=== PATIENT | female | born 1930 | race Caucasian/White ===

== ENCOUNTER 2018-07-09 20:43 | Emergency (ER) | payer MEDICARE, OTHER ==
[~2018-07-09] VITALS: Ht 157.5 cm; Wt 68.9 kg
[~2018-07-09 20:43] MED LIST: ARICEPT5 MG PO; ASPIRIN LOW DOS81 MG PO; FERROUS SULFAT325 MG PO; FLAGYL500 MG PO; FUROSEMIDE40 MG PO; LEVAQUIN500 MG PO; LOSARTAN POTASS25 MG PO; LOVENOX40 MG/0.4 SC; MACROBID 100 M100 MG PO; METOPROLOL SUCC25 MG PO; MULTI-VITAMIN1 EACH PO; ONDANSETRO4 MG/UDTAB PO; PANTOPRAZOLE SO40 MG PO; POTASSIUM CHLO10 ME1 PO; QUESTRAN PACKET4 GM PO; ULTIMATE FLORA PO; VANCOMYCIN PO; WARFARIN SODIU2.5 MG PO; WARFARIN SODIUM2 MG PO; Z.0.CALTRATE 600 W1 PO; Z.0.DIOVAN80 MG PO; Z.0.WARFARIN SODIUM2 PO; ZOLOFT50 MG PO; [UNRECOGNIZED DRUG - OTHER]; [UNRECOGNIZED DRUG - OTHER] PO
[2018-07-09 22:20] LABS: BASOPHILS # (AUTO) 0.1 (0.0-0.1); BASOPHILS % 0.5 % (0.0-1.0); EOSINOPHILS # (AUTO) 0.1 (0.0-0.4); EOSINOPHILS % 1.4 % (0.0-6.0); HEMATOCRIT 38.3 % (34.2-44.1); HEMOGLOBIN 12.9 g/dL (12.0-16.0); LYMPHOCYTES # (AUTO) 1.4 (1.0-3.2); MEAN CORPUSCULAR HEMOGLOBIN 32.1 pg (28-32); MEAN CORPUSCULAR HGB CONC 33.7 g/dL (31-35); MEAN CORPUSCULAR VOLUME 95.3 fL (81-99); MONOCYTES # (AUTO) 0.7 (0.2-0.8); MONOCYTES % 7.1 % (4.4-11.3); NEUTROPHILS # (AUTO) 7.2 (2.1-6.9); NEUTROPHILS % 75.7 % (38.7-80.0); PLATELET COUNT 279 x10e3/uL (140-360); RED BLOOD COUNT 4.02 x10e6/uL (3.6-5.1); RED CELL DISTRIBUTION WIDTH 13.1 % (11.7-14.4)
[2018-07-09 22:36] LABS: ALBUMIN/GLOBULIN RATIO 1.1 (0.8-2.0); ANION GAP 14.2 mmol/L (8-16); CREATININE, SERUM 1.05 mg/dL (0.57-1.11); POTASSIUM 4.2 mmol/L (3.5-5.1)
--- NOTE | 2018-07-09 22:40 | Diagnostic Imaging Report ---
KNEE LEFT THREE VIEWS HISTORY: Fall. COMPARISON: None available. FINDINGS: Bones: No acute displaced fracture. Osseous alignment is within normal limits. Joints: The joint spaces are well-maintained. Soft tissues: Vascular calcifications. No joint effusion. IMPRESSION: No acute radiographic abnormality. Signed by: DR. Silvestre Loja MD on 07/09/2018 10:37 PM
[2018-07-09 22:43] LABS: CREATINE KINASE MB 0.7 ng/mL (0-5.0)
--- NOTE | 2018-07-09 22:45 | Diagnostic Imaging Report ---
EXAMINATION: CHEST SINGLE (PORTABLE) INDICATION: NEAR SYNCOPE COMPARISON: Chest x-ray 11/06/2016 FINDINGS: AP view TUBES and LINES: Left chest wall single lead cardiac pacer with lead tip overlying the right ventricle. LUNGS: Lungs are well inflated. Stable scarring or atelectasis in the right mid and left lower lungs. There is no evidence of pneumonia or pulmonary edema. PLEURA: No pleural effusion or pneumothorax. HEART AND MEDIASTINUM: Mild enlargement of the cardiac silhouette. BONES AND SOFT TISSUES: Expanded appearance of the proximal right humerus appears new from 11/06/2016. Soft tissues are unremarkable. UPPER ABDOMEN: No free air under the diaphragm. IMPRESSION: Stable mild enlargement of the cardiac silhouette. No acute thoracic abnormality. Expanded appearance of the partially visualized proximal right humerus, new from 11/06/2016. Recommend dedicated right humerus radiographs for further evaluation. Signed by: DR. Silvestre Loja MD on 07/09/2018 10:42 PM
[2018-07-09 22:54] LABS: CALCIUM 10.1 mg/dL (8.4-10.2)
--- NOTE | 2018-07-09 23:29 | Diagnostic Imaging Report ---
EXAMINATION: Head CT without contrast. HISTORY:Near syncope, vomiting and fall. COMPARISON:CT brain from 10/13/2016. TECHNIQUE: Multidetector axial images were obtained from the foramen magnum to the vertex without contrast. The images were reconstructed using brain and bone algorithms. Thin section brain images were reformatted into coronal and sagittal planes. Dose modulation, iterative reconstruction, and/or weight based adjustment of the mA/kV was utilized to reduce the radiation dose to as low as reasonably achievable. Intravenous contrast: None IMAGE QUALITY: Acceptable. FINDINGS: Skull/scalp: No lytic or blastic. lesions. No surgical changes. Parenchyma: Nonspecific bilateral frontoparietal patchy white matter hypodensity are likely related to small vessel ischemic changes. Unchanged cortical-based hypodensity in right occipital lobe represents chronic encephalomalacia from prior vascular insult. No acute hemorrhage, mass or acute major vascular territorial infarct. Arteries: No density suggestive of thrombosis. Atherosclerotic calcification in bilateral carotid siphon. Dural sinuses: No abnormal density suggestive of thrombosis. Ventricles: Mild compensated dilatation due to volume loss. No hydrocephalus. Extra-axial spaces: No abnormal density. Brain volume: Generalized age-related cerebral volume loss. Craniocervical junction: No mass, Chiari malformation, or basilar invagination. Sella: No mass. Paranasal/mastoid sinuses: Imaged portions unremarkable. IMPRESSION: 1. No acute intracranial abnormality. 2. No change since CT brain from 10/13/2016. Chronic findings: 1. Generalized age-related cerebral volume loss. 2. Mild supratentorial white matter microvascular ischemic changes. 3. 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 Signed by: Dr. Michaela Mcneil M.D. on 07/09/2018 11:26 PM
[2018-07-09 23:32] LABS: BILIRUBIN,URINE NEGATIVE (NEGATIVE); CLARITY,URINE CLOUDY (CLEAR); COLOR,URINE YELLOW (YELLOW); KETONES,URINE NEGATIVE (NEGATIVE); LEUKOCYTE ESTERASE ,URINE 2+ (NEGATIVE); NITRITE,URINE POSITIVE (NEGATIVE); PROTEIN,URINE DIPSTICK NEGATIVE (NEGATIVE); URINE UROBILINOGEN 0.2 mg/dL (0.2 - 1)
[2018-07-09 23:46] LABS: BACTERIA,URINE MANY /HPF; EPITHELIAL CELLS,URINE FEW /LPF; WBC,URINE (MAN) >50 /HPF (0-5)
[2018-07-10] MEDS ORDERED: CEFTRIAXONE SOD 1 GM/NS 50 ML 50 ML IV ONE (00:15)
[2018-07-10 00:49] VITALS: BP 125/77
== END 2018-07-10 01:04 | disposition home or self-care (01) ==
LOC: ER 21:23
DX: R55 Syncope and collapse (principal); R11.0 Nausea; N30.90 Cystitis, unspecified without hematuria
CPT/HCPCS: 36415; 70450; 71045; 73562; 80053; 81001; 82150; 82550; 82553; 83690; 84484; 85025; 93005; 99284; J0696